=== PATIENT | male | born 1950 | race Caucasian/White ===

== ENCOUNTER 2022-01-15 08:15 | Outpatient (CLI) | payer MEDICARE | END 2022-01-15 23:59 | disposition home or self-care (01) | LOC: VAS 08:15 | PROVIDERS: ATTEND Internal Medicine | DX: I65.23 Occlusion and stenosis of bilateral carotid arteries (principal); I69.392 Facial weakness following cerebral infarction | CPT/HCPCS: 93880 ==

== ENCOUNTER 2022-01-15 09:14 | Emergency (ER) | payer MEDICARE ==
[~2022-01-15] VITALS: Ht 167.6 cm; Wt 57.3 kg
[2022-01-15] MEDS ORDERED: heparin 10,000 units/1 ML INJ IV ONE (09:20)
[2022-01-15] MEDS ORDERED: heparin 10,000 units/1 ML INJ IV PRN (09:20)
[2022-01-15] MEDS ORDERED: heparin 25,000 UNIT/250ml bag 250 ML IV SCH (09:20)
[2022-01-15 09:38] LABS: BASOPHILS % (AUTO) 0.4 % (0-1); EOSINOPHILS # (AUTO) 0.1 X10'3 (0-0.9); EOSINOPHILS % (AUTO) 1.5 % (0-6); HEMATOCRIT 37.3 % (42.0-52.0); HEMOGLOBIN 12.8 g/dl (14.0-17.9); LYMPHOCYTES # (AUTO) 0.8 X10'3 (1.1-4.8); LYMPHOCYTES % (AUTO) 12.1 % (21-51); MEAN CORPUSCULAR HGB CONC 34.5 g/dL (33.0-36.5); MEAN CORPUSCULAR VOLUME 101.6 FL (78-98); MEAN PLATELET VOLUME 6.8 FL (7.4-10.4); MONOCYTES # (AUTO) 0.6 X10'3 (0-0.9); MONOCYTES % (AUTO) 8.4 % (2-12); NEUTROPHILS # (AUTO) 5.2 X10'3 (1.8-7.7); NEUTROPHILS % (AUTO) 77.6 % (42-75); PLATELET COUNT 261 X10'3 (140-440); RED BLOOD COUNT 3.67 X10'6 (4.70-6.10); RED CELL DISTRIBUTION WIDTH 12.8 % (11.5-14.5); WHITE BLOOD COUNT 6.7 X10'3 (4.5-11.0)
[2022-01-15 09:53] LABS: APTT 36 SECONDS (22-32)
[2022-01-15 10:55] LABS: ALANINE AMINOTRANSFERASE 15 U/L (12-78); ALBUMIN 3.7 G/DL (3.4-5.0); ALBUMIN/GLOBULIN RATIO 0.9 (1.1-1.5); ALKALINE PHOSPHATASE 62 IU/L (46-116); ANION GAP 11 (8-16); ASPARTATE AMINO TRANSFERASE 13 U/L (10-37); BILIRUBIN,TOTAL 0.4 MG/DL (0.1-1.0); BLOOD UREA NITROGEN 12 MG/DL (7-18); BUN/CREATININE RATIO 8.8 (5.4-32.0); CALCIUM 9.3 MG/DL (8.5-10.1); CHLORIDE 101 MMOL/L (99-107); CREATININE 1.37 MG/DL (0.60-1.10); GLUCOSE 127 MG/DL (70-104); POTASSIUM 3.6 MMOL/L (3.5-5.1); SODIUM 138 MMOL/L (135-145); eGFR 52 ML/MIN
[2022-01-15] MEDS ORDERED: iohexol 350MG/ML 100ml bottle IV ONE (11:31)
[2022-01-15] MEDS ORDERED: MESSAGE TO NURSING PO NR (12:00)
[2022-01-15 12:06] LABS: CLARITY,URINE CLEAR (Clear); GLUCOSE, URINE NEGATIVE (Neg); KETONES,URINE NEGATIVE (Neg); LEUKOCYTE ESTERASE ,URINE NEGATIVE (Neg); NITRITES, URINE NEGATIVE (Neg); OCCULT BLOOD,URINE TRACE-INTACT (Neg); PH,URINE 5.5 (4.8-8.0); PROTEIN,URINE NEGATIVE (Neg); UROBILINOGEN,URINE 0.2 E.U/dL (0.2-1.0)
[2022-01-15 12:11] LABS: COLOR,URINE STRAW (Yellow); UA COLLECTION TYPE NON-SPECIFIED
[2022-01-15 12:13] LABS: BACTERIA,URINE FEW /HPF (Neg); RBC,URINE 0-2 /HPF (0-2); SQUAMOUS EPITHELIAL CELL,UR FEW /LPF (FEW); WBC,URINE 0-4 /HPF (0-4)
[2022-01-15 12:57] VITALS: BP 133/88
== END 2022-01-15 13:11 | disposition home or self-care (01) ==
LOC: ER 09:14
DX: I65.22 Occlusion and stenosis of left carotid artery (principal); Z86.73 Personal history of transient ischemic attack (TIA), and cerebral infarction without residual deficits
CPT/HCPCS: 36415; 70496; 70498; 71045; 80053; 81001; 85025; 85610; 85730; 86885; 86900; 86901; 93005; 93880; 96374; 99285; J1644; Q9967; 96365

== ENCOUNTER 2023-04-23 07:06 | Emergency (ER) | payer MEDICARE ==
[~2023-04-23] VITALS: Ht 167.6 cm; Wt 60.0 kg
[2023-04-23 07:09] VITALS: TEMP 99.5
[2023-04-23 08:36] LABS: CLARITY,URINE CLOUDY (Clear); COLOR,URINE YELLOW (Yellow); GLUCOSE, URINE NEGATIVE (Neg); KETONES,URINE NEGATIVE (Neg); LEUKOCYTE ESTERASE ,URINE LARGE (Neg); NITRITES, URINE NEGATIVE (Neg); OCCULT BLOOD,URINE LARGE (Neg); PROTEIN,URINE 100 mg/dl (Neg); UROBILINOGEN,URINE 0.2 E.U/dL (0.2-1.0)
[2023-04-23 08:40] LABS: UA COLLECTION TYPE CLN CATCH MIDSTREAM
[2023-04-23 08:41] LABS: BACTERIA,URINE 4+ /HPF (Neg); RBC,URINE 0-2 /HPF (0-2); WBC,URINE TNTC /HPF (0-4)
[2023-04-23 08:42] LABS: MUCUS STRANDS NONE SEEN /LPF (Neg); SQUAMOUS EPITHELIAL CELL,UR FEW /LPF (FEW); WBC CLUMPS,URINE MODERATE /HPF (NEGATIVE)
[2023-04-23] MEDS ORDERED: CefTRIAXone/D5W-Rocephin 1gm 50 ML IV ONE (09:00)
[2023-04-23 09:52] LABS: BASOPHILS % (AUTO) 0.3 % (0-1); EOSINOPHILS % (AUTO) 0.6 % (0-6); HEMATOCRIT 36.5 % (42.0-52.0); HEMOGLOBIN 12.6 g/dl (14.0-17.9); LYMPHOCYTES # (AUTO) 0.9 X10'3 (1.1-4.8); MEAN CORPUSCULAR HEMOGLOBIN 36.7 PG (27.0-31.0); MEAN CORPUSCULAR HGB CONC 34.4 g/dL (33.0-36.5); MEAN CORPUSCULAR VOLUME 106.7 FL (78-98); MONOCYTES # (AUTO) 1.2 X10'3 (0-0.9); MONOCYTES % (AUTO) 16.6 % (2-12); NEUTROPHILS # (AUTO) 5.1 X10'3 (1.8-7.7); NEUTROPHILS % (AUTO) 70.5 % (42-75); PLATELET COUNT 194 X10'3 (140-440); RED BLOOD COUNT 3.42 X10'6 (4.70-6.10); RED CELL DISTRIBUTION WIDTH 12.4 % (11.5-14.5); WHITE BLOOD COUNT 7.2 X10'3 (4.5-11.0)
[2023-04-23 10:08] LABS: ALANINE AMINOTRANSFERASE 18 U/L (12-78); ALBUMIN 2.9 G/DL (3.4-5.0); ALBUMIN/GLOBULIN RATIO 0.7 (1.1-1.5); ALKALINE PHOSPHATASE 63 IU/L (46-116); ANION GAP 9 (8-16); ASPARTATE AMINO TRANSFERASE 17 U/L (10-37); BILIRUBIN,TOTAL 0.2 MG/DL (0.1-1.0); BLOOD UREA NITROGEN 26 MG/DL (7-18); BUN/CREATININE RATIO 12.8 (10.0-20.0); CALCIUM 8.8 MG/DL (8.5-10.1); CHLORIDE 98 MMOL/L (99-107); CREATININE 2.03 MG/DL (0.60-1.10); GLUCOSE 210 MG/DL (70-104); LIPASE 395 U/L (73-393); POTASSIUM 3.8 MMOL/L (3.5-5.1); SODIUM 131 MMOL/L (135-145); TOTAL CARBON DIOXIDE 23.8 MMOL/L (24-32); eGFR 33 ML/MIN
[2023-04-23] MEDS ORDERED: AMOX-117 PO (10:14)
[2023-04-23 10:19] LABS: PLATELET ESTIMATE NORMAL; TOTAL CELLS COUNTED 100
[2023-04-23 11:04] VITALS: BP 147/79; PULSE 95; RESP 17; O2SAT 97
== END 2023-04-23 11:06 | disposition home or self-care (01) ==
LOC: ER 07:06
DX: N39.0 Urinary tract infection, site not specified (principal); I51.9 Heart disease, unspecified; Z79.899 Other long term (current) drug therapy
CPT/HCPCS: 36415; 80053; 81001; 83690; 85007; 85025; 87088; 87186; 96365; 99284; J0696; J7030; 87077

== ENCOUNTER 2025-08-12 03:24 | Emergency (ER) | payer MEDICARE ==
[~2025-08-12] VITALS: Ht 167.6 cm; Wt 56.0 kg
[2025-08-12 03:59] VITALS: TEMP 98.1
--- NOTE | 2025-08-12 05:32 | Physician Documentation ---
History of Present Illness ~ Chief Complaint: Arm Pain Stated Complaint: ARM PAIN Time Seen by MD: 05:31 Primary Medical Doctor: Dr. Jason HPI 75-year-old, history of stroke on warfarin, who presents with right forearm swelling and pain He tells me that over the past day he has developed gradually worsening pain and swelling to his right forearm. Over the past couple of hours that seems to have significantly increased. No tingling numbness or weakness to his right hand. No definite injury to his arm. He is on warfarin, states his INR was normal yesterday No other acute concerns Tetanus within 5 years: No Medication Reconciliation Allergies: Coded Allergies: morphine (Verified Allergy, Mild, Itchiness, 08/12/25) Past Medical History Past Medical History: CVA/TIA/Stroke, *RENAL/* Past Surgical History: no surgical history Smoking Status: Never smoker Alcohol Use: Other Drug Use: none Lives In: Home Review of Systems Constitutional: Denies: fever Musculoskeletal: Reports: pain, swelling Physical Exam Vital Signs: Temperature: 98.1, Source: Oral, Heart Rate: 110, Respiratory Rate: 18, BP: 142/85, Pulse Oximetry: 98, Weight: 56.000 Physical Exam General: This is a pleasant and overall healthy appearing older man, sitting calmly in bed Heart: Regular rate and rhythm, normal-appearing peripheral perfusion including normal right radial pulse Lungs: normal work of breathing, normal oxygen saturation on room air Extremities: Right upper extremity: The patient has an area firm tender swelling to the right forearm on the radial side. Mild surrounding bruising. No erythema or warmth. The right-hand otherwise has a normal sensation to light touch, normal sorting machine operator strength and normal capillary refill Neuro: Alert and oriented Psychiatric: Calm and cooperative with exam Progress Results/Orders Results/Orders Orders - DARYN JUÁREZ MD Ortho Orders (08/12/25 07:30) Completed Orders - DARYN JUÁREZ MD Hydrocodone/Apap 5/325mg Tab (Saxon 5/32 (08/12/25 07:00) Medications Received in ER Medications (Trade) Dose Ordered Sig/Tomer Route PRN Reason Start Time Stop Time Status Last Admin Dose Admin (Saxon 5/325mg tablet) 1 tab ONCE ONCE PO 08/12/25 07:00 08/12/25 07:02 DC 08/12/25 07:20 1 TAB Vital Signs 08/12/25 08/12/25 08/12/25 08/12/25 03:59 04:05 07:20 08:30 Temp 98.1 Pulse 110 98 Resp 18 14 15 15 B/P (MAP) 142/85 157/87 (110) Pulse Ox 98 98 Laboratory Tests Test 08/12/25 07:54 White Blood Count 5.2 Red Blood Count 3.06 L Hemoglobin 10.9 L Hematocrit 31.3 L Mean Corpuscular Volume 102.3 H Mean Corpuscular Hemoglobin 35.5 H Mean Corpuscular Hemoglobin Concent 34.7 Red Cell Distribution Width 13.4 Platelet Count 175 Mean Platelet Volume 7.4 Neutrophils (%) (Auto) 78.2 H Lymphocytes (%) (Auto) 9.5 L Monocytes (%) (Auto) 10.0 Eosinophils (%) (Auto) 1.8 Basophils (%) (Auto) 0.5 Neutrophils # (Auto) 4.1 Lymphocytes # (Auto) 0.5 L Monocytes # (Auto) 0.5 Eosinophils # (Auto) 0.1 Basophils # (Auto) 0.0 CBC Comment Prothrombin Time 19.3 H INR International Normalized Ratio 2.0 Coagulation Comments Sodium Level 141 Potassium Level 3.5 Chloride Level 104 Carbon Dioxide Level 29.0 Anion Gap 8 Blood Urea Nitrogen 18 Creatinine 1.65 H Estimated GFR/1.73 m2 41 BUN/Creatinine Ratio 10.9 Glucose Level 183 H Calcium Level 8.3 L Total Bilirubin 0.7 Aspartate Amino Transf (AST/SGOT) 23 Alanine Aminotransferase (ALT/SGPT) 25 Alkaline Phosphatase 74 Total Protein 6.3 L Albumin 3.2 L Globulin 3.1 Albumin/Globulin Ratio 1.0 L Chemistry Comments Re-Evaluation Re-Evaluation #1: Re-Evaluation Time: 06:58 Progress Assumed care from Dr. Amaral. Examined the patient. He does have tender swelling on the volar surface of the arm, with some ecchymosis now extending mor e distal. He has a strong radial pulse and normal capillary refill to the fingers. Sensation is intact to light touch throughout. Motor function is intact to the median/radial/ulnar nerve distribution, although full range of motion limited by pain. Patient has undergone CT, awaiting result. Ice pack placed over the area, over a sheet. Re-Evaluation #2: Re-Evaluation Time: 07:[address] confirms mass consistent with hematoma. Patient with intact neurovascular status, and therapeutic INR, not requiring reversal at this time. He will be immobilized, continue with elevation and ice, recheck closely as outpatient. He is a retired orthopedic nurse, understands that he can and should takeoff the splint as needed and will keep a close eye on his sensation, motor, and pain. Patient with strict instructions to return if he begins to develop any signs of neurovascular compromise, severe pain, any other concerns. He is comfortable with this plan. Physical exam unchanged. Medical Decision Making Additional information obtaine: N/A Findings na General Diff Dx:Considerations: Include: Contusion, Fracture Shoulder Diff Dx:Consideration: Unlikely: AC separation Elbow Diff Dx:Considerations: Unlikely: Abrasion Wrist Diff Dx:Considerations: Unlikely: Abrasion Hand Diff Dx:Considerations: Unlikely: Abrasion Finger Diff Dx:Considerations: Unlikely: Abrasion Additional Comment The patient presents with pain and swelling to his forearm. He is on anticoagulation. His exam is concerning for possible hematoma. DVT seems unlikely. No evidence to suggest infection. Labs will be obtained to check his blood counts and INR. A CT will be obtained to evaluate for hematoma. The patient was shift change, pending labs and CT scan. Departure Time of Disposition: 08:48 Disposition: 01 HOME / SELF CARE / HOMELESS Impression: Primary Impression: Arm swelling Additional Impression: Hematoma Condition: Stable Discharge Instructions: Hematoma Additional Instructions: Your INR is 2.0 today as well. Your neurovascular status is currently intact. CT scan showing evidence of hematoma. Please continue to elevate your arm to minimize swelling and pressure to the hematoma. You may use ice through the splint. You have been splinted across the wrist joint to prevent movement of your flexors, in the hopes of holding progression of the hematoma. It is imperative that you keep a close eye on your symptoms, and return immediately if you have any signs of increasing pain, numbness, weakness, or any changes or concerns. Referrals: NO PRIMARY CARE PROVIDER (PCP) Prescriptions Acetaminophen With Codeine (Tylenol W/Codeine #3 Tab) 300 Mg-30 Mg Tablet 1 EACH PO QID PRN PRN for pain, #14 TAB Prov: DARYN JUÁREZ MD 08/12/25 Education Educated: Patient Educated regarding: diagnosis, treatment Signature Scribe Signature: giles Attestation: MANGO Cao MD Aug 12, 2025 05:32 DARYN JUÁREZ MD Aug 12, 2025 07:00
--- NOTE | 2025-08-12 06:58 | RADIOLOGY REPORT ---
MEDICAL RECORDS NUMBER: [id number] PROCEDURE: CT CT UPPER EXTREM(SHOULDER/ARM) Date: 08/12/2025 06:20 AM HISTORY: right forearm swelling and pain, eval for hematoma, on warfarin TECHNIQUE: CT of the right forearm is performed without intravenous contrast. Sagittal and coronal reconstruction images are provided. CONTRAST: None COMPARISON: None RADIATION DOSE INFORMATION: Automated exposure control dose reduction techniques were used. FINDINGS: There is a roughly 4 cm x 3 cm ill-defined masslike density within the anterior muscles a which may represent hematoma. Diffuse surrounding swelling suspected. The bones appear to be intact. Other soft tissue structures appear unremarkable. MRI May provide additional evaluation clinically needed. IMPRESSION: 1. 4 cm x 3 cm ill-defined masslike density within the anterior muscles a which may represent hematoma. 2. Diffuse surrounding swelling suspected. 3. The bones appear to be intact. 4. Other soft tissue structures appear unremarkable. 5. MRI May provide additional evaluation as clinically needed.
[2025-08-12] MEDS: HYDROcodone/acetaminophen 5mg/325mg tablet PO ONE (07:20)
[2025-08-12 08:13] LABS: MEAN PLATELET VOLUME 7.4 FL (7.4-10.4); RED CELL DISTRIBUTION WIDTH 13.4 % (11.5-14.5)
[2025-08-12 08:25] LABS: INR 2.0 INR
[2025-08-12 08:31] LABS: CREATININE 1.65 MG/DL (0.60-1.10); TOTAL CARBON DIOXIDE 29.0 MMOL/L (24-32); eCRCL 32 ML/MIN; eGFR 41 ML/MIN
[2025-08-12] MEDS ORDERED: ACET-3068 PO (08:51)
[2025-08-12 09:30] VITALS: BP 152/93; PULSE 100; RESP 15; O2SAT 98
== END 2025-08-12 09:32 | disposition home or self-care (01) ==
LOC: ER 03:25
DX: S50.11XA Contusion of right forearm, initial encounter (principal); M79.89 Other specified soft tissue disorders; Z88.5 Allergy status to narcotic agent; Z86.73 Personal history of transient ischemic attack (TIA), and cerebral infarction without residual deficits; Z79.01 Long term (current) use of anticoagulants; X50.1XXA Overexertion from prolonged static or awkward postures, initial encounter; Y93.89 Activity, other specified; Y92.89 Other specified places as the place of occurrence of the external cause; Y99.8 Other external cause status
CPT/HCPCS: 29125; 36415; 73200; 80053; 85025; 85610; 99284; A4565; A6446; A6449